=== PATIENT | male | born 1975 | race Caucasian/White ===

== ENCOUNTER 2023-12-20 10:05 | Emergency (ER) | payer SELFPAY ==
[~2023-12-20] VITALS: Wt 67.1 kg
[~2023-12-20 10:05] MED LIST: TOBRADEX 0.1%-0.5 ML OPH
[2023-12-20] MEDS ORDERED: ANIMAL CHEWS1 EACH PO (10:13)
[2023-12-20] MEDS ORDERED: MORPHINE Sulfate 2 MG/ML SYR IV ONE (10:25)
[2023-12-20] MEDS ORDERED: IOHEXOL 300 MG/ML 100 ML VIAL IV ONE (10:50)
[2023-12-20 10:55] LABS: BASO # 0.1 10*3/uL (0.0-0.1); BASO % 0.8 % (0.0-1.0); EOS # 0.1 10*3/uL (0.0-0.4); EOS % 1.3 % (1.0-4.0); HEMATOCRIT 39.8 % (42.0-52.0); LYMPH # 2.5 10*3/uL (1.3-4.4); LYMPH % 28.7 % (27.0-41.0); MEAN CELL VOLUME 96.8 fl (80.0-94.0); MEAN CORPUSCULAR HGB 33.3 pg (27.0-31.0); MEAN CORPUSCULAR HGB CONC 34.4 g/dl (33.0-37.0); MEAN PLATELET VOLUME 9.1 fl (9.6-12.3); MONO # 0.5 10*3/uL (0.1-1.0); MONO % 5.6 % (3.0-9.0); NEUT # 5.5 10*3/uL (2.3-7.9); NEUT % 63.4 % (47.0-73.0); PLATELET COUNT AUTOMATED 295 10*3/uL (130-400); RED BLOOD COUNT 4.11 10*6/uL (4.50-5.90); WHITE BLOOD COUNT 8.6 10*3/uL (4.8-10.8)
[2023-12-20 11:18] LABS: ALKALINE PHOSPHATASE 93 U/L (46-116); CHLORIDE 108 mmol/L (98-107); LIPASE 35 U/L (12-53); POTASSIUM 3.5 mmol/L (3.4-5.1); SGPT/ALT 47 U/L (5-49); TOTAL PROTEIN 6.9 gm/dL (6.0-8.0)
[2023-12-20 11:19] LABS: BUN < 5 mg/dl (9-23)
[2023-12-20 11:37] LABS: BILIRUBIN Negative (Negative); BLOOD Negative (Negative); CLARITY Clear (Clear); COLOR Yellow (Yellow); GLUCOSE Negative (Negative); KETONE Negative (Negative); LEUKO ESTERASE Negative (Negative); NITRITE Negative (Negative); PH 6.5 (4.5-8.0); UROBILINOGEN 0.2 E.U./dl (0.0-1.0)
[2023-12-20 11:59] LABS: EPITHELIAL CELLS 0-2; WBC 0-2 wbc/hpf (0-5)
[2023-12-20] MEDS ORDERED: PREDNISONE20 M1 PO (12:48)
[2023-12-20] MEDS ORDERED: methylPREDNISolone sod succ 40 MG VIAL IV ONE (12:50)
== END 2023-12-20 12:49 | disposition home or self-care (01) ==
LOC: ED 10:05
PROVIDERS: Emergency Medicine
DX: K52.9 Noninfective gastroenteritis and colitis, unspecified (principal); K40.90 Unilateral inguinal hernia, without obstruction or gangrene, not specified as recurrent; R31.9 Hematuria, unspecified; F17.200 Nicotine dependence, unspecified, uncomplicated